=== PATIENT | female | born 1940 | race Caucasian/White ===

== ENCOUNTER 2018-01-07 12:45 | Outpatient (CLI) | payer MEDICARE | END 2018-01-07 12:46 | disposition home or self-care (01) | LOC: BICMAMMO 12:45 | PROVIDERS: ATTEND Internal Medicine Rheumatology | DX: Z13.820 Encounter for screening for osteoporosis (principal); M81.0 Age-related osteoporosis without current pathological fracture | CPT/HCPCS: 77080 ==

== ENCOUNTER 2018-01-15 13:11 | Outpatient (CLI) | payer MEDICARE ==
--- NOTE | 2018-01-15 14:56 | RAD ---
LEFT KNEE 4 VIEWS: Date: 01/15/18 HISTORY: Osteoarthritis of left knee. FINDINGS/IMPRESSION: There are postop changes and metallic hardware in the left proximal tibia. Degenerative changes are p resent. No acute fracture, dislocation, or bony destruction identified. POS: ANABELLE
== END 2018-01-15 13:12 | disposition home or self-care (01) ==
LOC: RAD 13:11
PROVIDERS: ATTEND Nurse Practitioner Family
DX: M17.12 Unilateral primary osteoarthritis, left knee (principal); Z98.890 Other specified postprocedural states

== ENCOUNTER 2018-05-13 21:46 | Emergency (ER) | payer MEDICARE ==
[2018-05-13] MEDS ORDERED: Morphine 4 MG/ML VIAL ONE (22:05)
[2018-05-13 22:57] LABS: Bilirubin Negative (Negative); Blood, Urine Negative (Negative); Clarity Clear (Clear); Glucose, Urine (Dipstick) Negative (Negative); Leukocyte Small (Negative); Nitrite Negative (Negative); Protein, Urine (Dipstick) Negative (Neg-Trace); Specific Gravity, Urine 1.031 (1.002-1.036); Urobilinogen 0.2 mg/dL (0.2-1.0); pH, Urine 5.5 (5.0-9.0)
--- NOTE | 2018-05-13 23:02 | RAD ---
LEFT HIP TWO VIEWS: HISTORY: Hip pain. FINDINGS: The joint space appears fairly well preserved with minimal arthritic change. No signs of fracture. IMPRESSION: Minimal arthritic changes of the hip. POS: ANABELLE
[2018-05-13 23:03] LABS: RBC/HPF 0-3 HPF (0-3); Squamous Epithelial 0-3 HPF (0-3)
--- NOTE | 2018-05-13 23:03 | RAD ---
AP PELVIS: HISTORY: Hip and pelvic pain. FINDINGS: The pelvic ring appears intact. The bones appear somewhat demineralized. There are arthritic change s of the lower lumbar spine and minimal arthritic changes of both hips. IMPRESSION: No acute findings. POS: ANABELLE
[2018-05-13 23:04] LABS: Bacteria/HPF 1+ HPF (None Seen); Hyaline Casts/LPF 0-3 HYALINE CAST LPF (0-3 Hyaline)
--- NOTE | 2018-05-13 23:48 | CT ---
CT PELVIS WITHOUT CONTRAST: HISTORY: Pelvic and left hip pain. FINDINGS: The bones appear demineralized. There are some fairly minimal arthritic changes of the SI joints. N o signs of any sacral insufficiency type fractures. The superior and inferior pubic rami are intact. There are minimal arthritic changes of both hips. There are some arthritic changes of the symphysis. Also, arthritic changes of the lower lumbar spine . Sigmoid diverticulosis is incidentally noted. IMPRESSION: No evidence of any acute fracture. If the patient has continued pain, it may be helpful to obtain an MRI, to evaluate for some type of s tress type reaction. POS: ANABELLE
[2018-05-13] MEDS ORDERED: Cephalexin 500 MG CAP ONE (23:55)
[2018-05-13] MEDS ORDERED: HYDROcodone/Acetaminophen 7.5/325 mg Tablet ONE (23:55)
== END 2018-05-14 00:13 | disposition home or self-care (01) ==
LOC: SCSER 21:46
DX: M25.552 Pain in left hip (principal); R10.30 Lower abdominal pain, unspecified; N39.0 Urinary tract infection, site not specified; E78.5 Hyperlipidemia, unspecified; I48.91 Unspecified atrial fibrillation; Z79.899 Other long term (current) drug therapy
CPT/HCPCS: 72170; 72192; 81003; 81015; 96372; J2270

== ENCOUNTER 2018-05-14 15:45 | Outpatient (CLI) | payer MEDICARE ==
--- NOTE | 2018-05-14 19:45 | MRI ---
MRI OF LEFT HIP PERFORMED WITHOUT CONTRAST ENHANCEMENT: 05/14/18 HISTORY: Left hip pain since yesterday. There is considerable motion artifact on this examination which shows significantly degrades detail. There is a very diffusely heterogeneous marrow pattern which appears to be related to a combination o f fat and areas which appear to represent some red marrow reconversion. The cause of this can be mult iple. This does not have the typical appearance of metastatic disease. Small field of view images of the left hip were obtained which shows some arthritic change with sugge stion of some loss of articular cartilage. There is a left hip joint effusion. There is no abnormal m arrow signal change that would suggest a stress type fracture. There are tendinopathy changes of both hamstring tendon origins. The left gluteus minimus and medius tendons are grossly intact. Best visualized on the coronal imagin g. The visualized intrapelvic contents show no findings. IMPRESSION: Left hip joint effusion of uncertain etiology. I do not see any signs of any stress type reaction or fracture or any bony findings that would suggest osteomyelitis type process. There is a diffusely het erogeneous marrow signal change within the bones. Some of this represents fat density with some of th e bones in the pelvis but also suggestion that there has been red marrow reconversion within the lumb ar spine. This can be of multiple etiologies. POS: ANABELLE
== END 2018-05-14 15:46 | disposition home or self-care (01) ==
LOC: SCSMRI 15:45
PROVIDERS: ATTEND Orthopaedic Surgery
DX: M25.552 Pain in left hip (principal); M25.452 Effusion, left hip

== ENCOUNTER 2018-09-18 15:28 | Emergency (ER) | payer MEDICARE ==
--- NOTE | 2018-09-18 16:09 | RAD ---
XR Wrist 3 Lt View STANDARD History: [Injury] Comparison: None. Findings: Intra-articular distal radius fracture with dorsal angulation and minimal dorsal displaceme nt. Mild foreshortening distal radius. There is widening of the of the scapholunate interval. Impression: Intra-articular distal radius fracture with dorsal angulation and displacement along with mild widening of the scapholunate interval.
--- NOTE | 2018-09-18 16:22 | CT ---
CT BRAIN NONCONTRAST: DATE: 09/18/18 at 4:06 p.m. HISTORY: 77-year-old female status post acute head trauma due to fall. Patient is on anticoagulation therapy. COMPARISON: None available. FINDINGS: The bifrontal extra-axial spaces are enlarged. There is no acute subdural, epidural, subarachnoid, or intra-axial hemorrhage. Ventricles are normal in size and configuration. No mass effect or midline s hift. No depressed calvarial fracture. Mucous retention cyst at floor of right maxillary sinus. The r est of the paranasal sinuses, and the bilateral tympanomastoid cavities, are grossly clear. IMPRESSION: 1. No acute intracranial findings. 2. Enlarged extra-axial spaces around the bilateral cerebral hemispheres. This is probably due t o brain parenchymal volume loss. This is less likely to represent subdural hygroma or bilateral small chronic epidural hematomas. 3. Consider nonemergent, noncontrast MR of the brain on an elective basis, or followup noncontra st brain CT in 1 to 3 months. YADY Spence POS: FRANKLIN
== END 2018-09-18 16:45 | disposition home or self-care (01) ==
LOC: SCSER 15:28
DX: S52.502A Unspecified fracture of the lower end of left radius, initial encounter for closed fracture (principal); E78.5 Hyperlipidemia, unspecified; I48.91 Unspecified atrial fibrillation; Z79.891 Long term (current) use of opiate analgesic; Z79.899 Other long term (current) drug therapy; W22.8XXA Striking against or struck by other objects, initial encounter
CPT/HCPCS: 29125; 70450

== ENCOUNTER 2018-09-24 13:06 | Observation (INO) | payer MEDICARE ==
[2018-09-24] MEDS ORDERED: Bupivacaine HCl 0.5%/Epinephrine 1:200,000/PF 30 ml Vial ONE (13:31)
[2018-09-24] MEDS ORDERED: PROPOFOL 200 MG/20 ML VIAL ONE (13:49)
[2018-09-24] MEDS ORDERED: Lidocaine 1% PF 5 ML VIAL ONE (13:49)
[2018-09-24] MEDS ORDERED: Dexamethasone 20 MG/5 ML VIAL ONE (13:49)
[2018-09-24] MEDS ORDERED: Ondansetron PF 4 MG/2 ML Vial ONE (13:49)
[2018-09-24 14:15] LABS: Bilirubin Small (Negative); Blood, Urine Negative (Negative); Clarity CLEAR (Clear); Glucose, Urine (Dipstick) Negative (Negative); Leukocyte Trace (Negative); Nitrite Negative (Negative); Protein, Urine (Dipstick) Negative (Neg-Trace); Specific Gravity, Urine 1.027 (1.002-1.036); pH, Urine 6.5 (5.0-9.0)
[2018-09-24 14:17] LABS: Bacteria/HPF None Seen HPF (None Seen); Hyaline Casts/LPF 4-6 HYALINE CAST LPF (0-3 Hyaline); Pathc Cast-AUWi Flag 1.36 (0-2.49); Squamous Epithelial 0-3 HPF (0-3); WBC/HPF 0-3 HPF (0-3)
[2018-09-24] MEDS ORDERED: Midazolam HCl 2 mg/2 ml Vial ONE (14:28)
[2018-09-24] MEDS ORDERED: Fentanyl 100 MCG/2 ML VIAL ONE ×2 (14:28→16:56)
[2018-09-24 14:51] LABS: #Eosinphils 0.1 thou/uL (0.0-0.7); #Lymphocytes 1.5 thou/uL (1.20-3.40); #Monocytes 0.5 thou/uL (0.11-0.59); #Neutrophils 3.9 thou/uL (1.40-6.50); %Basophils 0.8 % (0.0-1.0); %Eosinophils 0.9 % (0.0-10.0); %Lymphocytes 24.8 % (21.0-51.0); %Monocytes 8.3 % (0.0-10.0); %Neutrophils 65.2 % (42.0-75.0); Mean Corpuscular HGB CONC 33.5 g/dL (32.0-36.0); Mean Corpuscular Hemoglobin 33.9 pg (27.0-31.0); Mean Platelet Volume 7.9 fL (7.4-10.4); Platelet Count 210 thou/uL (130-400); RBC Distribution Width 11.4 % (11.5-14.5); Red Blood Cell (RBC) Count 4.42 mill/uL (4.20-5.40); White Blood Cell (WBC) Count 5.9 thou/uL (4.8-10.8)
[2018-09-24 15:35] LABS: Anion Gap 17 mmol/L (10-20); BUN (Urea Nitrogen) 17 mg/dL (9.8-20.1); Calc. Creatinine Clearance 77 mL/min (70-130); Carbon Dioxide 21 mmol/L (23-31); Chloride 106 mmol/L (98-107); Estimated GFR-MDRD 71; Glucose 92 mg/dL (83-110); Potassium 5.7 mmol/L (3.5-5.1); Sodium 138 mmol/L (136-145)
[2018-09-24] MEDS ORDERED: Bupivacaine PF 0.5% 30 ML VIAL ONE (16:54)
[2018-09-24] MEDS ORDERED: Bacitracin Zinc Ointment 30 gm TUBE ONE (16:54)
[2018-09-24] MEDS ORDERED: Thrombin 5000 UNITS/5 ML VIAL ONE (17:53)
--- NOTE | 2018-09-24 20:26 | RAD ---
Exam: Left wrist 3 views: HISTORY: Status post ORIF Findings and impression: Placement of metal plate and screws stabilizing comminuted distal radial fracture with improved posit ion and alignment from prior study.
[2018-09-24] MEDS ORDERED: Acetaminophen 325 MG TAB PO PRN (21:31)
[2018-09-24] MEDS ORDERED: Morphine 2 MG/ML SYRINGE IVP PRN (21:31)
[2018-09-24] MEDS ORDERED: Promethazine HCl 25 MG/ML VIAL IM PRN (21:31)
[2018-09-24] MEDS ORDERED: traMADol HCl 50 MG TAB PO PRN (21:31)
[2018-09-24] MEDS ORDERED: Ondansetron PF 4 MG/2 ML Vial IV PRN (21:31)
[2018-09-24] MEDS ORDERED: Milk Of Magnesia 30 ML UDCUP PO PRN (21:31)
[2018-09-24] MEDS ORDERED: HYDROcodone/Acetaminophen 5/325 mg Tablet PO PRN (21:31)
[2018-09-24] MEDS ORDERED: Meperidine HCl/PF 25 MG/ML VIAL IM PRN (21:35)
[2018-09-24] MEDS ORDERED: Acetaminophen/Codeine 30-300mg Tablet PO PRN (21:38)
[2018-09-24] MEDS ORDERED: TETANUS AND DIPHTHERIA TOX/PF 0.5 ML DISP.SYRIN IM SCH (22:00)
[2018-09-24 23:13] VITALS: BMI 31.4
[2018-09-25] MEDS ORDERED: Vancomycin HCl 1 GM in Premix Bag 1 BAG IVPB SCH (05:00)
[2018-09-25 05:32] LABS: PTT 28.6 SEC (22.9-36.1); Prothrombin Time 13.5 SEC (12.0-14.7)
[2018-09-25] MEDS ORDERED: Spironolactone 25 MG TAB PO SCH (08:00)
[2018-09-25] MEDS ORDERED: Dronedarone HCl 400 MG TAB PO SCH (08:00)
[2018-09-25] MEDS ORDERED: Lactinex Tablet PO SCH (09:00)
[2018-09-25] MEDS ORDERED: Apixaban 5 MG TAB PO SCH ×2 (09:00)
[2018-09-25] MEDS ORDERED: Vancomycin HCl 750 MG in Sodium Chloride 0.9% 250 ML 250 ML IVPB SCH (09:00)
[2018-09-25] MEDS ORDERED: Aspirin 81 mg Enteric Coated Tablet PO SCH (09:00)
--- NOTE | 2018-09-25 09:05 | OP ---
DATE OF PROCEDURE: 09/24/2018 PREOPERATIVE DIAGNOSES: 1. Left wrist 4-part intra-articular distal radius fracture with some joint line incongruity sagittal plane split. 2. Scapholunate interosseous membrane tear. COMPLICATIONS: None. FINDINGS: 40% to 45% scapholunate tear almost dorsal complex tear with (1) Central portion torn from the lunate, and (2) Dorsal palmar torn from the scaphoid. PROCEDURE PERFORMED: 1. Open reduction and internal fixation of distal radius fracture, 4 part. 2. Minor bone graft, distal radius fracture. 3. Careful scapholunate interosseous membrane reconstruction and pinning in the carpal. 4. C-arm supervision. 5. Long-arm splint application. TOURNIQUET TIME: 108 minutes total (42 minutes down for 20 minutes and up for 76 minutes). BLOOD LOSS: Less than or equal to 50 cc. FINDINGS: 1. Greater than or equal to 40% grade scapholunate interosseous membrane tear complex as listed above. 2. 4-part intra-articular fracture with sagittal plane split and interfragmentary crush. DESCRIPTION OF PROCEDURE: After successful general LMA technique, augmented a block given preop with a one-shot block, the patient was comfortable and the limb prepped and draped. Time-out was done appropriately identifying the left side, distal radius, and the carpal bones as the site and the procedures matched the consent. We then exsanguinated the limb, placed tourniquet to 250 mmHg pressure. We knew the patient was on Eliquis, so we took precautions. We then made incision through skin and subcutaneous tissue in a zigzag fashion, protecting all branches of the median nerve and radial artery, found the flexor carpi radialis. We freed it in between the radial artery and the bed of the flexor carpi radialis tendon which opened with a knife. We then dissected sharply with scissors down to the pronator muscle and then released the muscle fascia from the radial side leaving attached ulnarly. We also released the brachioradialis as well parainsertional. We then performed a closed reduction, with assistance, we pulled traction on the hand appropriately and flexed the wrist until we achieved near anatomic position. We then teased up, then crossed K-wires and then teased a small segment that was depressed so that it was joint level. We then placed the [employer]ynthes 4-hole subarticular/juxtaarticular plate in appropriate position of the shaft with 2 K-wires through the plate and 1 through the shaft. We selected a 3 hole shaft system. We then placed the 3 screws periarticular, modify 1 because it looked to be intra-articular and then there was about 1 cm of elevation on the proximal portion of the plate. We prepared to place a standard drill, measure screw technique here, we then released all K-wires just as we placed the last chalker and achieved approximately 10 degrees more tilt. We then finished the final screws and removed all K-wires with excellent reduction and we closed the wound in the usual fashion with interrupted 2-0 Vicryl for the pronator repair, obtained hemostasis with the tourniquet down, . We closed subcutaneous tissue with a running 4-0 Monocryl and we used a 3-0 nylon interrupted mattress pattern to close the epidermis. We then turned our attention to the wrist dorsal injury by making outlined a dorsal approach to the scapholunate right over Dolores's tubercle. We exsanguinated the limb, and then made a dorsal approach entering the interval between the third and fourth dorsal compartments. We found the EPL and protected it. We released all the fascia. This time, we now had 3rd and 4th split to visualize the midcarpal joint. We made a 2.5 cm wide swath in the usual rhomboid type fashion to preserve the ligaments, visualized the fracture and found that it was not and there was a fracture gap, so we irrigated, placed some bone graft from cadaver cancellous chips in the bone graft defect and then irrigated the area. We turned our attention to scapholunate ligament by placing a wire in the scaphoid, knowing that the lunate was next to it. We then corrected the deformity and found that the patient had a complex tear off the dorsal 40% where it was still attached in the middle, but had torn off the scaphoid distally and proximally and off of another structure distally. For this reason, the patient had a trough in bone with a heavy Prolene placed into the ligament and brought into the lunate above the central zone and then the same technique was repeated x2 trough in bone and 2 anchors until we achieved a stable fixation, but before we tied the sutures, we tested them by first K-wire across the pin in the scaphoid to both the capitate and into the lunate checking in the frontal and sagittal plane to make sure it was adequate to promote proper healing. We then repaired the capsule rhomboid type incision, this was done with 2-0 Vicryl, and we repaired the retinaculum with 3-0 Monocryl. The patient then was prepared to leave the hospital and left the operating room without evidence of anesthetic or operative complication. Job ID: [id number]
[2018-09-25 12:06] VITALS: BP 119/66; TEMP 98.7
[2018-09-25] MEDS ORDERED: Atorvastatin Calcium 10 MG TAB PO SCH (21:00)
== END 2018-09-25 16:30 | disposition home or self-care (01) ==
LOC: SDC 13:06 → SURG A 21:31
PROVIDERS: ADMIT Orthopaedic Surgery Hand Surgery; ATTEND Orthopaedic Surgery Hand Surgery
PROC: 0PSJ04Z Reposition Left Radius with Internal Fixation Device, Open Approach (ICD-10-PCS; principal; 2018-09-24)
PROC: 0RUP07Z Supplement Left Wrist Joint with Autologous Tissue Substitute, Open Approach (ICD-10-PCS; 2018-09-24)
DX: S52.572A Other intraarticular fracture of lower end of left radius, initial encounter for closed fracture (principal); S63.8X2A Sprain of other part of left wrist and hand, initial encounter; M19.90 Unspecified osteoarthritis, unspecified site; M81.0 Age-related osteoporosis without current pathological fracture; I48.91 Unspecified atrial fibrillation; Z79.01 Long term (current) use of anticoagulants; Z79.2 Long term (current) use of antibiotics; Z79.899 Other long term (current) drug therapy; Z88.6 Allergy status to analgesic agent; Z88.8 Allergy status to other drugs, medicaments and biological substances; W18.30XA Fall on same level, unspecified, initial encounter
CPT/HCPCS: 25320; 25609; 73110; 76000; 80048; 85025; 85610; 85730; 93005; 96374; C1713 ×4; G0378; 36415; 81003; 81015; 93010; J0131; J0670; J0690; J1100; J2001; J2250; J2405; J2704; J3010; J3370; S0020

== ENCOUNTER 2019-01-20 13:37 | Outpatient (CLI) | payer MEDICARE ==
--- NOTE | 2019-01-20 15:56 | BD ---
DEXA BONE DENSITY: HISTORY: Osteoporosis. FINDINGS: Lumbar Spine: BMD (g/cm2) L1 0.910 T-Score: -0.7 1.5 L2 0.980 T-Score: -0.4 2.1 L3 1.033 T-Score: -0.5 2.2 L4 1.174 T-Score: 1.0 3.8 L1-L4 1.027 T-Score: -0.2 2.4 Femoral Neck: 0.525 T-Score: -2.9 0.7 Total Femur: 0.701 T-Score: -2.0 0.0 Impression: Lumbar spine: WHO classification is normal. Fracture risk is not increased. Note, there is signific ant osteophyte formation and levoscoliosis of the lumbar spine which may possibly increase the patien t's bone mineral density and possibly decrease the patient's fracture risk. Femoral neck: WHO classification osteoporosis. FRAX is not reported because some T-scores are at or below -2.5. Treated for osteoporosis. POS: OFF
== END 2019-01-20 13:38 | disposition home or self-care (01) ==
LOC: BICMAMMO 13:37
PROVIDERS: ATTEND Internal Medicine Rheumatology
DX: M81.0 Age-related osteoporosis without current pathological fracture (principal); M41.9 Scoliosis, unspecified; M25.78 Osteophyte, vertebrae
CPT/HCPCS: 77080

== ENCOUNTER 2019-04-14 09:44 | Outpatient (CLI) | payer MEDICARE ==
--- NOTE | 2019-04-14 12:25 | MRI ---
MRI LUMBAR SPINE PERFORMED WITHOUT CONTRAST ENHANCEMENT: Date: 04/14/19 HISTORY: Low back pain for many years. Neurogenic claudication. FINDINGS: There is marked scoliotic change convex to the left. There is severe arthritic change of the spine wi th severe disc narrowing at L1-2, L2-3, L3-4, and L4-5. There is no significant periaortic adenopath y. Visualized portions of the kidneys show no focal abnormalities. T12-L1: Unremarkable. L1-2: Degenerative facet changes are present at this level. There is some posterior osteophytic nguyen ge with borderline canal narrowing. No foraminal stenosis. L2-3: There is a left lateral small disc protrusion present. The canal is mildly stenotic. No forami nal stenosis is seen. L3-4: Degenerative facet changes at this level are associated with a mild degree of canal narrowing. There is also mild right-sided foraminal narrowing related to the facet changes, as well as the disc bulge. L4-5: Degenerative facet changes at his level are associated with a moderate degree of canal stenosi s. There is also moderate bilateral foraminal narrowing at this level. L5-S1: Asymmetric left-sided facet changes impress on the left side of the thecal sac at this level slightly narrowing the transverse dimension. There is some moderate left foraminal narrowing. IMPRESSION: Areas of canal and foraminal stenosis as described above. POS: ANABELLE
== END 2019-04-14 09:45 | disposition home or self-care (01) ==
LOC: TBSIIMAG 09:44
PROVIDERS: ATTEND Neurological Surgery
DX: M48.062 Spinal stenosis, lumbar region with neurogenic claudication (principal); M54.5 Low back pain; M48.07 Spinal stenosis, lumbosacral region
CPT/HCPCS: 72148

== ENCOUNTER 2019-12-05 09:35 | Outpatient (CLI) | payer MEDICARE ==
--- NOTE | 2019-12-05 11:12 | MRI ---
MRI LUMBAR SPINE NONCONTRAST: HISTORY: Lumbar stenosis with neurogenic claudication. Low back pain times several years, worsening. Bilateral thigh weakness and groin pain. COMPARISON: 04/14/2019. FINDINGS: Stable leftward curvature of the lumbar spine. Stable senescent changes of the vertebral bodies. No s ignificant STIR hyperintensity to suggest ligamentous injury or vertebral body edema. Stable fatty marrow involving the left and right iliac wing and iliac bones. Appropriate signal intensity visualized solid organs and paraspinal muscles. Conus medullaris terminates at the upper aspect of L1. T12-L1:Adequate disc hydration. No significant central canal stenosis. Mild bilateral neural foramina l narrowing. L1-L2:Desiccation with moderate to severe loss of disc space height. Broad-based disc bulge results i n mild central canal stenosis. Moderate bilateral neural foraminal narrowing. L2-L3:Desiccation with severe loss of disc space height. Broad-based disc bulge with a left articular herniation. Disc material contacts but does not obscure the traversing left L3 nerve root. At least [id number] central canal stenosis. Moderate to severe right and moderate left neural fora bert narrowing. L3-L4:Desiccation with severe loss of disc space height. Broad-based disc bulge abuts the thecal sac. There is bilateral facet hypertrophy. Mild central canal stenosis. Moderate to severe right and [id number] left neural foraminal narrowing. L4-L5:Desiccation with mild loss of disc space height. Broad-based disc bulge, and facet hypertrophy result in mild to moderate central canal stenosis. Moderate to severe right and severe left neural foraminal narrowing. L5-S1:Mild desiccation without significant loss of disc space height. Central disc herniation abuts t he thecal sac. No significant central canal stenosis. Disc material does encroach upon the left subarticular zone and abut the traversing left S1 nerve root. There is bilateral facet hypertrophy, l eft greater than right. Mild right and moderate to severe left neural foraminal narrowing. 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 Hemangioma at the T12 v ertebral body is noted. IMPRESSION: 1. Stable scoliotic curvature of the lumbar spine. 2. Extensive degenerative changes of the lumbar spine as detailed above. Transcribed Date/Time: 12/05/2019 11:49 AM
== END 2019-12-05 09:36 | disposition home or self-care (01) ==
LOC: TBSIIMAG 09:35
PROVIDERS: ATTEND Anesthesiology Pain Medicine
DX: M48.062 Spinal stenosis, lumbar region with neurogenic claudication (principal); M47.816 Spondylosis without myelopathy or radiculopathy, lumbar region; M41.9 Scoliosis, unspecified
CPT/HCPCS: 72148

== ENCOUNTER 2022-03-27 09:46 | Outpatient (CLI) | payer MEDICARE | END 2022-03-27 09:47 | disposition home or self-care (01) | LOC: TBSIIMAG 09:46 | PROVIDERS: ATTEND Anesthesiology Pain Medicine | DX: M47.814 Spondylosis without myelopathy or radiculopathy, thoracic region (principal); M51.34 Other intervertebral disc degeneration, thoracic region | CPT/HCPCS: 72146 ==

== ENCOUNTER 2024-04-08 11:20 | Emergency (ER) | payer MEDICARE | END 2024-04-08 13:12 | disposition home or self-care (01) | LOC: ERS 11:20 | DX: S01.01XA Laceration without foreign body of scalp, initial encounter (principal); E78.2 Mixed hyperlipidemia; I48.91 Unspecified atrial fibrillation; Z79.01 Long term (current) use of anticoagulants; Z79.899 Other long term (current) drug therapy; W01.10XA Fall on same level from slipping, tripping and stumbling with subsequent striking against unspecified object, initial encounter | CPT/HCPCS: 12001; 70450; 99283; G0390 ==